=== PATIENT | male | born 1950 | race Caucasian/White ===

== ENCOUNTER 2020-07-04 13:44 | Emergency (ER) | payer MEDICARE, OTHER ==
[2020-07-04] MEDS ORDERED: MECLIZINE HCL 12.5 MG TABLET PO ONE (14:09)
--- NOTE | 2020-07-04 14:14 | ER Document Report ---
ED Medical Screen (RME) - General Chief Complaint: Dizziness Stated Complaint: DIZZINESS Time Seen by Provider: 07/04/20 13:59 - HPI Notes: 07/04/20 14:10 70-year-old male with a history of type 2 diabetes on Metformin, hyperlipidemia, COPD, GERD who has had 5 stents placed on Plavix presents to the emergency room today for sudden onset dizziness when he got up from a table at a restaurant approximately 20 minutes ago. Patient states that "my head felt cloudy". Denies any numbness or tingling down bilateral upper or lower extremities, reports he did feel some weakness and fatigue. Patient states that he does not have any chest pain but he does have a baseline shortness of breath that has not become any worse. He is scheduled for a chemical stress test in August with [facility] cardiology. Denies any prior instances where he has had sudden onset dizziness. Denies any fevers or chills, nausea vomiting or diarrhea. Patient states he has lost 40 pounds in the last 6 months but is unsure if this is related to starting Metformin, reports he has not had an appetite. Was a smoker for 50 years but quit roughly 3 years ago I have greeted and performed a rapid initial assessment of this patient. A comprehensive ED assessment and evaluation of the patient, analysis of test results and completion of the medical decision making process will be conducted by additional ED providers. PHYSICAL EXAMINATION: GENERAL: Well-appearing, well-nourished and in no acute distress. HEAD: Atraumatic, normocephalic. EYES: Pupils equal round extraocular movements intact, conjunctiva are normal. NECK: Normal range of motion CV: s1, s2 regular LUNGS: No respiratory distress Musculoskeletal: Normal range of motion NEUROLOGICAL: Normal speech, in [place]. [place] test positive. 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 SKIN: Warm, Dry, normal turgor, no rashes or lesions noted. 07/04/20 14:13 - Related Data Allergies/Adverse Reactions: prednisone Adverse Reaction (Verified 07/04/20 14:08) Home Medications: plavix, doxazosin, oxybutynin, pravastatin, amlodipine, carvedilol, lisinopril, omeprazole, potassium, metformin, finasteride Past Medical History - Social History Chew tobacco use (# tins/day): No Frequency of alcohol use: None Drug Abuse: None Physical Exam - Vital signs Vitals: Temp Pulse Resp BP Pulse Ox 97.4 F 73 18 105/86 H 95 07/04/20 14:07 07/04/20 14:07 07/04/20 14:07 07/04/20 14:07 07/04/20 14:07 Course - Vital Signs Vital signs: Temp Pulse Resp BP Pulse Ox 97.4 F 73 18 105/86 H 95 07/04/20 14:07 07/04/20 14:07 07/04/20 14:07 07/04/20 14:07 07/04/20 14:07
[2020-07-04 14:55] LABS: ABSOLUTE BASOPHILS # (AUTO) 0.1 10^3/uL (0.0-0.2); ABSOLUTE EOSINOPHILS # (AUTO) 0.1 10^3/uL (0.0-0.6); ABSOLUTE LYMPHOCYTES (AUTO) 2.1 10^3/uL (0.5-4.7); ABSOLUTE MONOCYTES (AUTO) 0.8 10^3/uL (0.1-1.4); ABSOLUTE NEUT (AUTO) 3.8 10^3/uL (1.7-8.2); BASOPHILS % (AUTO) 1.1 % (0-2); EOSINOPHILS % (AUTO) 1.3 % (0-6); HEMATOCRIT 44.4 % (37.9-51.0); HEMOGLOBIN 14.9 g/dL (13.5-17.0); MEAN CORPUSCULAR HGB CONC 33.5 g/dL (32.0-36.0); MEAN CORPUSCULAR VOLUME 90 fl (80-97); MONOCYTES % (AUTO) 11.2 % (3-13); PLATELET COUNT 205 10^3/uL (150-450); RED BLOOD COUNT 4.95 10^6/uL (4.35-5.55); RED CELL DISTRIBUTION WIDTH 13.4 % (11.5-14.0); SEGMENTED NEUTROPHILS % (AUTO) 56.4 % (42-78); TOTAL CELLS COUNTED % (AUTO) 100 %; WHITE BLOOD COUNT 6.8 10^3/uL (4.0-10.5)
--- NOTE | 2020-07-04 15:06 | RADIOLOGY REPORT (SQ) ---
EXAM DESCRIPTION: CT HEAD WITHOUT IMAGES COMPLETED DATE/TIME: 07/04/2020 2:47 pm REASON FOR STUDY: new onset dizziness x 30 minutes ago COMPARISON: None. TECHNIQUE: Axial images acquired through the brain without intravenous contrast. Images reviewed wi th bone, brain and subdural windows. Additional sagittal and coronal reconstructions were generated. Images stored on PACS. All CT scanners at this facility use dose modulation, iterative reconstruction, and/or weight based d osing when appropriate to reduce radiation dose to as low as reasonably achievable (ALARA). [facility]: Dose Right [facility]: CareDose [facility]: Dose Right [facility]: Teradose 4D [facility]: Smart Sosei RADIATION DOSE: CT Rad equipment meets quality standard of care and radiation dose reduction techniq ues were employed. CTDIvol: 53.2 mGy. DLP: 1097 mGy-cm. mGy. LIMITATIONS: None. FINDINGS: VENTRICLES: Mild ventricular enlargement consistent with generalized atrophy. CEREBRUM: No masses. No hemorrhage. No midline shift. No evidence for acute infarction. Mild small -vessel ischemic change. No evidence of acute stroke. 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 CEREBELLUM: No masses. No hemorrhage. No alteration of density. No evidence for acute infarction. EXTRAAXIAL SPACES: Prominent consistent with generalized atrophy. ORBITS AND GLOBE: No intra- or extraconal masses. Normal contour of globe without masses. CALVARIUM: No fracture. PARANASAL SINUSES: No fluid or mucosal thickening. SOFT TISSUES: No mass or hematoma. OTHER: No other significant finding. IMPRESSION: No acute intracranial event. Incidental note is made of a CSF cyst in the left middle c ranial fossa. EVIDENCE OF ACUTE STROKE: NO. COMMENT: Quality ID # 436: Final reports with documentation of one or more dose reduction techniques (e.g., Automated exposure control, adjustment of the mA and/or kV according to patient size, use of iterative reconstruction technique) TECHNICAL DOCUMENTATION: JOB ID: [id number] 2010 [employer]- All Rights Reserved Reading location - IP/workstation name: [email or web address]
--- NOTE | 2020-07-04 15:07 | RADIOLOGY REPORT (SQ) ---
EXAM DESCRIPTION: CHEST SINGLE VIEW IMAGES COMPLETED DATE/TIME: 07/04/2020 2:50 pm REASON FOR STUDY: new onset dizziness x 30 minutes ago COMPARISON: None. EXAM PARAMETERS: NUMBER OF VIEWS: One view. TECHNIQUE: Single frontal radiographic view of the chest acquired. RADIATION DOSE: NA LIMITATIONS: None. FINDINGS: LUNGS AND PLEURA: No opacities, masses or pneumothorax. No pleural effusion. MEDIASTINUM AND HILAR STRUCTURES: No masses. Contour normal. HEART AND VASCULAR STRUCTURES: Heart normal in size. Normal vasculature. BONES: No acute findings. HARDWARE: Battery pack and leads are in place. OTHER: No other significant finding. IMPRESSION: NO ACUTE RADIOGRAPHIC FINDING IN THE CHEST. TECHNICAL DOCUMENTATION: JOB ID: [id number] 2010 [employer]- All Rights Reserved Reading location - IP/workstation name: [email or web address]
[2020-07-04 15:15] LABS: ALBUMIN 4.7 g/dL (3.5-5.0); ALKALINE PHOSPHATASE 34 U/L (38-126); ANION GAP 10 (5-19); ASPARTATE AMINO TRANSFERASE 21 U/L (17-59); BILIRUBIN,DIRECT 0.2 mg/dL (0.0-0.4); BILIRUBIN,TOTAL 0.5 mg/dL (0.2-1.3); BLOOD UREA NITROGEN 24 mg/dL (7-20); CALCIUM 9.8 mg/dL (8.4-10.2); CARBON DIOXIDE 26 mmol/L (22-30); CHLORIDE 102 mmol/L (98-107); GLUCOSE 97 mg/dL (75-110); POTASSIUM 4.9 mmol/L (3.6-5.0); TOTAL PROTEIN 7.8 g/dL (6.3-8.2)
[2020-07-04] MEDS ORDERED: NORMAL SALINE 500 ML IV ONE (16:17)
--- NOTE | 2020-07-04 18:06 | RADIOLOGY REPORT (SQ) ---
EXAM DESCRIPTION: CTA HEAD IMAGES COMPLETED DATE/TIME: 07/04/2020 5:49 pm REASON FOR STUDY: unsteady, dizziness COMPARISON: None. TECHNIQUE: Post IV contrast scanning, thin section axial imaging through the brain to evaluate the a rterial structures. Source and MIP images are saved and reviewed on PACS. Advanced 3D imaging as volume-rendering, MIPs, SSD performed? yes All CT scanners at this facility use dose modulation, iterative reconstruction, and/or weight based d osing when appropriate to reduce radiation dose to as low as reasonably achievable (ALARA). [facility]: Dose Right [facility]: CareDose [facility]: Dose Right [facility]: Teradose 4D [facility]: ISIGN Media CONTRAST TYPE AND DOSE: 70 mL Omnipaque 300- low osmolar. RENAL FUNCTION: BUN 24, creatinine 1.50 LIMITATIONS: None. FINDINGS: [place]: The anterior, middle, posterior cerebral arteries are all patent. No ev idence of aneurysm or focal stenosis. POSTERIOR CIRCULATION: The distal vertebral arteries are patent as is the basilar artery. No aneurysm . BRAIN: Left middle cranial fossa CSF cyst is again noted. BONES: Intact as visualized. SINUSES: No fluid or mucosal thickening. OTHER: No other significant finding. IMPRESSION: NO CTA EVIDENCE OF STENOSIS OR ANEURYSM OF THE [place]. TECHNICAL DOCUMENTATION: JOB ID: [id number] Quality ID # [id number]: Final reports with documentation of one or more dose reduction techniques (e.g., Au tomated exposure control, adjustment of the mA and/or kV according to patient size, use of iterative reconstruction technique) 2010 [employer]- All Rights Reserved Reading location - IP/workstation name: [email or web address]
--- NOTE | 2020-07-04 18:08 | RADIOLOGY REPORT (SQ) ---
EXAM DESCRIPTION: CTA NECK IMAGES COMPLETED DATE/TIME: 07/04/2020 5:49 pm REASON FOR STUDY: unsteady, dizziness COMPARISON: None. TECHNIQUE: Axial dynamic scanning technique with dynamic contrast enhancement through the extra-bridge crane operator nial carotid and vertebral arteries. Multiplanar reconstruction. 3-D MIPS and Volume-rendered imag es acquired at the workstation and saved to PACS. Images are reviewed in soft tissue, bone, lung w indows. All CT scanners at this facility use dose modulation, iterative reconstruction, and/or weight based d osing when appropriate to reduce radiation dose to as low as reasonably achievable (ALARA). [facility]: Dose Right [facility]: CareDose [facility]: Dose Right [facility]: Teradose 4D [facility]: Verafin CONTRAST TYPE AND DOSE: contrast/concentration: Isovue 300.00 mmol/ml; Total Contrast Delivered: 70. 0 ml; Total Saline Delivered: 75.0 ml RENAL FUNCTION: BUN 24, creatinine 1.50 LIMITATIONS: None. FINDINGS: AORTIC ARCH: Normal three-vessel origin. Bilateral subclavian arteries are patent. No d issection. RIGHT CAROTIDS: Patent common, internal and external carotid arteries without suggestion of significa nt stenosis or irregular plaque. No dissection. Proximal ICA is very tortuous. RIGHT VERTEBRAL: Patent. No dissection. LEFT CAROTIDS: Patent common, internal and external carotid arteries without suggestion of significan t stenosis or irregular plaque. No dissection. Proximal ICA is very tortuous. LEFT VERTEBRAL: Patent. No dissection. OTHER: No other significant finding. OTHER: 3-D reconstructions confirm findings. IMPRESSION: No hemodynamically significant stenosis on the right or left. Both internal carotid art eries are very tortuous. Both ascend in the retropharyngeal space. COMMENT: Quality ID #[id number]: Measurements of distal internal carotid diameter were used as the denomina tor for stenosis measurement. TECHNICAL DOCUMENTATION: JOB ID: [id number] Quality ID # [id number]: Final reports with documentation of one or more dose reduction techniques (e.g., Au tomated exposure control, adjustment of the mA and/or kV according to patient size, use of iterative reconstruction technique) 2010 [employer]- All Rights Reserved Reading location - IP/workstation name: [email or web address]
--- NOTE | 2020-07-04 18:26 | ER Document Report ---
ED Dizziness/Weakness - General Chief Complaint: Dizziness Stated Complaint: DIZZINESS Time Seen by Provider: 07/04/20 13:59 Primary Care Provider: ANDRE PAYTON MD [Primary Care Provider] - Follow up as needed Mode of Arrival: Ambulatory Information source: Patient TRAVEL OUTSIDE OF THE [place] IN LAST 30 DAYS: No - HPI Notes: This patient is a very pleasant 70-year-old who was here in our area shopping with his today. They stopped for lunch and when he got up from the table he felt very unsteady and said his head was "swimming". He denies any true vertigo. He had no nausea or vomiting with this. He had no change in his hearing, vision, speech, or swallowing. He had no focal motor or sensory symptoms. His symptoms have essentially resolved now. They lasted for about 20 minutes. He denies any palpitations or chest pain with any of this. He has never had anything like this before. 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 His was concerned that he felt so unsteady so intensely and so she brought him in for evaluation. He has not been ill in any other way and is otherwise in his usual state of health. - Related Data Allergies/Adverse Reactions: prednisone Adverse Reaction (Verified 07/04/20 14:08) Home Medications: plavix, doxazosin, oxybutynin, pravastatin, amlodipine, carvedilol, lisinopril, omeprazole, potassium, metformin, finasteride Past Medical History - General Information source: Patient - PMH and social history reviewed as documented. - Social History Smoking Status: Former Smoker Chew tobacco use (# tins/day): No Frequency of alcohol use: None Drug Abuse: None Family History: Reviewed & Not Pertinent - Medical History Medical History: Other - Past Medical History Cardiac Medical History: Reports: Hx Heart Attack, Hx Hypertension Pulmonary Medical History: Reports: Hx COPD Endocrine Medical History: Reports: Hx Diabetes Mellitus Type 1, Hx Diabetes Mellitus Type 2 GI Medical History: Reports: Hx Gastroesophageal Reflux Disease Past Surgical History: Reports: Hx Appendectomy, Hx Cardiac Catheterization, Hx Cardiac Surgery, Hx Kidney (Renal Surgery) Review of Systems - Review of Systems Notes: All systems are reviewed and are negative or noncontributory except as noted in the present illness. -: Yes All other systems reviewed and negative Physical Exam - Vital signs Vitals: Temp Pulse Resp BP Pulse Ox 97.4 F 73 18 105/86 H 95 07/04/20 14:07 07/04/20 14:07 07/04/20 14:07 07/04/20 14:07 07/04/20 14:07 - Notes Notes: General: This is a well-developed well-nourished elderly male in no acute distress. Vital signs and nursing documentation are reviewed. HEENT: Normocephalic and atraumatic. EOMI. PERRLA. ENT exam otherwise unremarkable. Neck: Supple, nontender, no adenopathy, no carotid bruits. Trachea midline. Chest: Normal configuration lungs have good air entry bilaterally with no wheezes rales or rhonchi. Heart: Regular rate and rhythm without murmur rub or gallop. Abdomen: Soft nontender no mass organomegaly rigidity or guarding. Extremities: Without clubbing cyanosis edema or deformity. Skin: Warm moist good turgor some chronic changes in his lower extremities consistent with venous stasis. Neuro: Alert and oriented x3. Cranial nerves II through XII intact bilaterally. Strength is 5/5 in all groups tested. Sensation is intact throughout. Reflexes are 2+ and symmetrical at patellar and Achilles. Finger-nose reveals a mild intention tremor bilaterally and symmetrically. No rest tremor is identified. Course - Re-evaluation Re-evalutation: 07/04/20 18:24 On careful questioning the patient revealed that he has had his intention tremor for about 3 years but is never told his doctor about it. Other than that he says his symptoms have resolved. He cannot have an MRI because of his pacemaker. CTA of the head and neck were carried out. This revealed no carotid occlusion or narrowing and no intracranial abnormalities. Given that his symptoms have resolved and his diagnostic studies are, to the greatest extent possible given his situation, nondiagnostic for any acute cerebrovascular disease, I think is reasonable to send him home to follow-up with his primary care doctor for possible neurology consultation. - Vital Signs Vital signs: Temp Pulse Resp BP Pulse Ox 97.4 F 65 18 104/78 99 07/04/20 14:07 07/04/20 19:02 07/04/20 19:02 07/04/20 19:02 07/04/20 19:02 - Laboratory Result Diagrams: 07/04/20 14:35 07/04/20 14:35 Laboratory results interpreted by me: 07/04/20 14:35 BUN 24 H Creatinine 1.50 H Est GFR ( Amer) 56 L Est GFR (MDRD) Non-Af 46 L Alkaline Phosphatase 34 L - Diagnostic Test Radiology reviewed: Image reviewed, Reports reviewed Radiology results interpreted by me: 07/04/20 18:26 Chest X-Ray 07/04/20 14:09 IMPRESSION: NO ACUTE RADIOGRAPHIC FINDING IN THE CHEST. Head CT 07/04/20 14:09 IMPRESSION: No acute intracranial event. Incidental note is made of a CSF cyst in the left middle cranial fossa. EVIDENCE OF ACUTE STROKE: NO. Head CTA 07/04/20 16:20 IMPRESSION: NO CTA EVIDENCE OF STENOSIS OR ANEURYSM OF THE [place]. Neck CTA 07/04/20 16:20 IMPRESSION: No hemodynamically significant stenosis on the right or left. Both internal carotid arteries are very tortuous. Both ascend in the retropharyngeal space. - EKG Interpretation by Me EKG shows normal: Sinus rhythm, [place], Intervals Discharge - Discharge Clinical Impression: Dizziness and giddiness, Intention tremor Condition: Good Disposition: HOME, SELF-CARE Instructions: Dizziness ([facility]) Additional Instructions: Continue your current medications as prescribed. Follow-up with your primary care doctor within 3 to 5 days for recheck. Call and make an appointment to do this. Tell them you need an ER follow-up. They may wish to refer you to a specialist called a neurologist. Return if any other concerning symptoms develop. Referrals: ANDRE PAYTON MD [Primary Care Provider] - Follow up as needed Print Language: [place]uran
--- NOTE | 2020-07-04 18:46 | EKG REPORT ---
SEVERITY:- BORDERLINE ECG - SINUS RHYTHM LEFT AXIS DEVIATION BORDERLINE R WAVE PROGRESSION, ANTERIOR LEADS : Confirmed by: Chemo Jeff MD 04-Jul-2020 18:45:28
[2020-07-04 19:03] VITALS: BP 104/78
== END 2020-07-04 19:03 | disposition home or self-care (01) ==
LOC: ER 13:44
DX: R42 Dizziness and giddiness (principal); G25.2 Other specified forms of tremor; I10 Essential (primary) hypertension; J44.9 Chronic obstructive pulmonary disease, unspecified; E11.9 Type 2 diabetes mellitus without complications; I25.2 Old myocardial infarction
CPT/HCPCS: 93005; 99285; 36415; 83735; 85025; 80053; 84484; 71045; 70450; 70496; 70498; 93010; J7040